=== PATIENT | male | born 1985 | race Caucasian/White ===

== ENCOUNTER 2024-04-07 16:52 | Emergency (ER) | payer MEDICAID, SELFPAY ==
[2024-04-07 16:53] VITALS: BP 108/62; PULSE 68; RESP 18; TEMP 36.6; O2SAT 96
--- NOTE | 2024-04-07 17:00 | DI.RAD_ITS ---
Exam(s) XR THUMB LT EXAM: XR THUMB LT CLINICAL HISTORY: thumb. TECHNIQUE: 2D digital imaging was performed. COMPARISON: No exams were available for comparison FINDINGS: 3 views No evidence of acute fracture or dislocation. No radiopaque foreign body. Bone density normal. No osseous lesions nor erosions. IMPRESSION: No acute osseous findings in the left thumb. DATA REPOSITORY: RADIATION DOSE DELIVERED:
--- NOTE | 2024-04-07 17:10 | ED.GENADUL_ITS ---
Discharge Plan Disposition Patient Disposition: Home Condition: Stable Discharge Details Clinical Impression: Contusion of left thumb Primary Care Provider: Unknown,Unknown ED Provider: Pepper Nesbitt Home Meds and New Rx's Prescriptions: No Action No Known Home Meds Discharge Instructions Instructions: Minor Contusion ED Additional Instructions: * No sign of fracture on your x-ray * You will likely continue to have some throbbing and pain. He can take Motrin, Tylenol and continue ice pack for the next 24 hours * The Steri-Strips may fall off, you can reapply a new one, this is just to help with the small wound * Wash hand with soap and water, do not use any alcohol or peroxide * wear the provided splint for comfort Discharge Data Discharge Date/Time-TO BE ENTERED AT DEPARTURE: 04/07/24 18:18 HPI General Date/Time Provider Initiated Documentation: 04/07/24 17:09 . Limitations to Documentation: no limitations . Information obtained by: patient . HPI Narrative: 38-year-old gentleman without significant past medical history presents for evaluation of acute onset left thumb pain. Earlier today he smashed his left thumb in the car door. Reports immediate onset of pain. Pain is progressively worsened throughout the day. He has not tried anything for relief. He reports that he has a small amount of bleeding that is still ongoing. He is left-hand dominant. Related Data Home Medications ?Medication ?Instructions ?Recorded ?Confirmed Unknown [No Known Home Meds] 04/07/24 04/07/24 Allergies Allergy/AdvReac Type Severity Reaction Status Date / Time No Known Allergies Allergy Verified 04/07/24 16:57 General Stated Complaint: Orthopedic TOVA: 4 Exam Narrative Exam Narrative: Review of Systems: All systems reviewed & are unremarkable except as noted in HPI and below Well-developed, no acute distress NCAT Unlabored respiratory effort Left thumb with bleeding at the cuticle from 3mm laceration , no subungual hematoma, nail is fully intact, normal sensation, full range of motion in all areas no focal neurologic deficits Appropriate mood and affect Course Vital Signs Vital signs: Vital Signs Temperature 36.6 C 04/07/24 16:53 Pulse 68 04/07/24 16:53 Respiratory Rate 18 04/07/24 16:53 Blood Pressure 108/62 04/07/24 16:53 Pulse Oximetry 96 04/07/24 16:53 Temperature 36.6 C 04/07/24 16:53 Temperature Source Oral 04/07/24 16:53 Pulse 68 04/07/24 16:53 Respiratory Rate 18 04/07/24 16:53 Blood Pressure 108/62 04/07/24 16:53 Blood Pressure Position Sitting 04/07/24 16:53 Pulse Oximetry 96 04/07/24 16:53 Oxygen Delivery Method Room Air 04/07/24 16:53 Oxygen Flow Rate 0 04/07/24 16:53 Pain Level 6 04/07/24 16:53 Procedures Laceration Laceration 1: Site: hand Side (If applicable): left Skin layer closed with: other (steri strip) Medical Decision Making Emergent evaluation of acute onset left traumatic thumb injury. The patient is left-hand dominant. Initial differential includes fracture, contusion, nailbed injury. Plan for pain control, wound care and x-ray imaging of the area. The nail is fully intact on removal would not be indicated given its appearance at this time. Wound was cleaned. The small open area was repaired with a Steri-Strip, nonstick dressing and a comfort splint were applied to the thumb as well. X-ray imaging of the thumb was obtained, reviewed and independently interpreted by me.: There is no evidence of traumatic injury of the thumb. Wound care instructions provided to the patient. Recommend follow-up with PCP as needed. Return precautions advised. Advised that the nail would likely fall off and will likely regrow Quality:SDOH Health Related Social Needs: No Data to Display PFSH All Active Problems (Updated 04/07/24 @ 18:06 by Pepper Nesbitt MD) Contusion of left thumb (Acute) Family History Father Alcohol use disorder Hypertension Mother , from Stage 4 Colon Cancer in 2012 Alcohol use disorder Anxiety Depression Colon cancer Social History Smoking/Tobacco Use Status: Current every day Tobacco Type: cigarettes Quit status: considering quitting Second Hand Exposure: Yes Smoking risk assessment performed?: Yes Alcohol Intake: former Year quit: 2023 Counseling given: Yes Drug use: Daily Substance use type: marijuana Adopted: No Caregiver/Support person: No Foster care: No Household members: none Housing: house Number of Children: 0 number of grandchildren: 0 Communication Needs: None Education Level: high school current occupation: [employer] Pets and animals: Yes ([employer]) Pets and animals: dog(s) Sexually active: No Do you think of yourself as: straight/heterosexual What is your relationship status?: never Do you belong to any clubs or organized social groups?: no Panel score (0-1 are the most socially isolated patients): 0 What type of physical activity do you participate in: walking and bicycling
[2024-04-07] MEDS: Ibuprofen 600 MG TAB PO (17:15)
--- NOTE | 2024-04-07 18:11 | DI.VRAD_ITS ---
PROCEDURE INFORMATION: Exam: XR Left Finger(s) Exam date and time: 04/07/2024 5:40 PM Age: 38 years old Clinical indication: Injury or trauma; Other: Crushed in truck door; Blunt trauma (contusions or hematomas); Finger; Left; Thumb TECHNIQUE: Imaging protocol: Radiologic exam of the left fingers. Views: Minimum 2 views. COMPARISON: No relevant prior studies available. FINDINGS: Bones/joints: There is some mild deformity of the 1st metacarpal, presumed prior trauma. No acute fracture. Joint spaces appear intact. Soft tissues: Normal. IMPRESSION: No evidence for acute posttraumatic abnormality. Dictated and Authenticated by: Zina Cobb MD. Ordering:[facility] Delicia Slater MD
== END 2024-04-07 18:18 | disposition home or self-care (01) ==
LOC: ER 18:27
PROVIDERS: Emergency Provider Emergency Medicine
DX: S60.012A Contusion of left thumb without damage to nail, initial encounter (principal); W23.0XXA Caught, crushed, jammed, or pinched between moving objects, initial encounter
CPT/HCPCS: 99283; 73140

== ENCOUNTER 2024-09-20 09:11 | Emergency (ER) | payer BC, SELFPAY ==
[2024-09-20 09:32] VITALS: BP 120/71; PULSE 81; RESP 18; TEMP 37.1; O2SAT 98
--- NOTE | 2024-09-20 10:00 | DI.RAD_ITS ---
Exam(s) XR CHEST 2V PA LATERAL EXAM: XR CHEST 2V PA LATERAL CLINICAL HISTORY: cough. TECHNIQUE: 2D digital imaging was performed. COMPARISON: No exams were available for comparison FINDINGS: 2 views: Heart size is normal. The mediastinum is not widened. Lungs are clear. No infiltrates nor pleural effusions. IMPRESSION: No acute pulmonary findings. DATA REPOSITORY: RADIATION DOSE DELIVERED:
--- NOTE | 2024-09-20 10:12 | W.ED.GENAD ---
Discharge Plan Disposition Patient Disposition: Home Condition: Stable Discharge Details Clinical Impression: URI (upper respiratory infection) Primary Care Provider: Krishna Knox ED Provider: Baron Meyer Home Meds and New Rx's Prescriptions: New prednisone 20 mg tablet 60 mg PO DAILY 5 Days Qty: 15 0RF albuterol sulfate 90 mcg/actuation HFA aerosol inhaler 2 puff inhalation Q6H PRNQty: 8.5 0RF Discharge Instructions Additional Instructions: Your x-ray and viral swab are negative. You can take 600 mg of ibuprofen and 1000 mg of acetaminophen every 6 hours as needed. If you are not improving within a week follow-up with your primary care provider. If you feel more ill or have new symptoms such as severe worsening difficulty breathing or persistent vomiting return to the emergency department for reevaluation. Stand Alone Forms: Work Release HPI General Mode of arrival: ambulatory. Date/Time Provider Initiated Documentation: 09/20/24 09:41. Limitations to Documentation: no limitations. Information obtained by: patient. History of Present Illness 39 year old M presents to the emergency department with the chief complaint of body aches, chills, cough, described as moderate, Patient started experiencing this day(s) (3) and it has been constant. No relieving factors improve symptom(s), No exacerbating factors reported . Patient notes cough and fever/chills; denies shortness of breath. Patient did receive the following treatments prior to arrival, none Related Data Home Medications ?Medication ?Instructions ?Recorded ?Confirmed albuterol sulfate 90 mcg/actuation 2 puff inhalation Q6H PRN #8.5 09/20/24 aerosol inhaler grams prednisone 20 mg tablet 60 mg (3 x 20 mg) PO DAILY 5 days 09/20/24 #15 tabs Previous Rx's ?Medication ?Instructions ?Recorded albuterol sulfate 90 mcg/actuation 2 puff inhalation Q6H PRN #8.5 09/20/24 aerosol inhaler grams prednisone 20 mg tablet 60 mg (3 x 20 mg) PO DAILY 5 days 09/20/24 #15 tabs Allergies Allergy/AdvReac Type Severity Reaction Status Date / Time No Known Allergies Allergy Verified 09/20/24 09:32 General Stated Complaint: RespSymp TOVA: 4 Review of Systems All systems reviewed & are unremarkable except as noted in HPI and below Constitutional Constitutional: Reports chills, Reports fever(s) and Denies weakness ENT Ears, Nose, Mouth, and Throat: Denies change in voice Cardiovascular Cardiovascular: Denies chest pain and Denies dyspnea Respiratory Respiratory: Reports cough and Denies dyspnea Gastrointestinal Gastrointestinal: Denies abdominal pain, Denies nausea and Denies vomiting Neurologic Neurologic: Denies weakness Psychiatric Psychiatric: Denies depression Exam Const General: no acute distress Orientation: alert HENMT Head: normal to inspection Ears: external ears normal General nose exam: external nose normal Mouth: moist mucous membranes Eyes General: appearance normal, both eyes and all related structures Neck Neck: normal visual inspection Resp Effort & Inspection: normal respiratory effort and able to speak in complete sentences Auscultation: clear to auscultation bilaterally Cardio Jugular venous pressure: no JVD Rate: regular rate Skin General skin exam: no rashes or lesions noted Neuro General: patient alert and patient oriented x3 Extrem General: normal to inspection Psych Mental Status: mental status grossly normal Course Vital Signs Vital signs: Vital Signs Temperature 37.1 C 09/20/24 09:32 Pulse 81 09/20/24 09:32 Respiratory Rate 18 09/20/24 09:32 Blood Pressure 120/71 09/20/24 09:32 Pulse Oximetry 98 09/20/24 09:32 Temperature 37.1 C 09/20/24 09:32 Temperature Source Oral 09/20/24 09:32 Pulse 81 09/20/24 09:32 Respiratory Rate 18 09/20/24 09:32 Respiratory Effort Normal, Non-Labored 09/20/24 09:35 Blood Pressure 120/71 09/20/24 09:32 Pulse Oximetry 98 09/20/24 09:32 Pain Level 8 09/20/24 09:32 Medical Decision Making 39-year-old male comes in with 3 days of bodyaches, subjective fevers and chills and productive cough. Denies any recent travel or IV drug use. He says he was positive for COVID September 05 and felt better but then this past Thursday started having recurrent body aches and cough. He is stable on arrival. He is speaking full sentences with no distress. He has a normal posterior pharynx, clear lung sounds, no JVD, no murmurs, no leg swelling. I suspect viral illness, will check a [id number] flu and COVID and also obtain chest x-ray. Chest x-ray and [id number] COVID and flu negative. I suspect an upper respiratory infection. Do not feel antibiotics are indicated. I will provide albuterol inhaler and prednisone given he has a smoking history and continues to smoke marijuana. He will follow-up with his PCP if not improving and return precautions given Differential Diagnosis Differential Diagnosis: Flu, COVID, pneumonia Quality:SDOH Health Related Social Needs: Health related social needs details States housing is no longer an issue. Using [employer] for transportation. Information given on local food resources. [facility] All Active Problems (Updated 09/20/24 @ 11:22 by Baron Meyer MD) URI (upper respiratory infection) (Acute) Smoker (Acute) Family history of colon cancer in mother (Chronic) Mother diagnosed at age 52 Bipolar disorder (Acute) Family History Father Alcohol use disorder Hypertension Mother , from Stage 4 Colon Cancer in 2012 Alcohol use disorder Anxiety Depression Colon cancer Social History Smoking/Tobacco Use Status: Former Tobacco Use Quit Date: 08/22/24 Tobacco: How many years used: 10 Quit status: considering quitting ([facility]. Advised to address with pcp if not successful with this program.) Second Hand Exposure: Yes Smoking risk assessment performed?: Yes Alcohol Intake: former Year quit: 2023 Counseling given: Yes Drug use: Daily Substance use type: marijuana Adopted: No Caregiver/Support person: No Foster care: No Household members: none Housing: house Number of Children: 0 number of grandchildren: 0 Communication Needs: None Education Level: high school current occupation: [employer] Pets and animals: Yes ([employer]) Pets and animals: dog(s) Sexually active: No Do you think of yourself as: straight/heterosexual What is your relationship status?: never Do you belong to any clubs or organized social groups?: no Panel score (0-1 are the most socially isolated patients): 0 What type of physical activity do you participate in: walking and bicycling Do you feel safe in your relationship?: Yes
[2024-09-20] MEDS: Ibuprofen 600 MG TAB PO (10:26)
[2024-09-20 12:14] VITALS: BP 120/71; PULSE 81; RESP 18; TEMP 37.1; O2SAT 98
== END 2024-09-20 12:14 | disposition home or self-care (01) ==
PROVIDERS: Emergency Provider Emergency Medicine; PCP Family Medicine
DX: J06.9 Acute upper respiratory infection, unspecified (principal)
CPT/HCPCS: 99283; 71046

== ENCOUNTER 2024-12-19 23:56 | Emergency (ER) | payer BC, SELFPAY ==
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
[2024-12-20 00:05] VITALS: PULSE 90; RESP 18; TEMP 36.8; O2SAT 99
[2024-12-20] MEDS: QUEtiapine 50 MG TAB PO (00:21)
[2024-12-20 01:11] LABS: *AMPHETAMINES SCREEN URINE Negative (Negative); *BARBITURATES SCREEN URINE Negative (Negative); *BENZODIAZEPINES SCREEN URINE Negative (Negative); Cannabinoids THC Positive (Negative); Cocaine Screen,Urine Negative (Negative); METHADONE URINE SCREEN Negative (Negative); OPIATES URINE SCREEN Negative (Negative)
[2024-12-20 01:15] LABS: Tricyclic Antidepressants Negative (Negative)
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
--- NOTE | 2024-12-20 07:42 | W.EDPROG ---
Date of service: 12/20/24 Time of Service: 07:43 Medical Decision Making I received signout on this 39-year-old male with history of bipolar disorder, likely manic at this point. Has agreed to voluntary inpatient admission for medication adjustment. No SI or HI and not needing involuntary criteria if he decides he wishes to leave. Home medications ordered. Will update documentation as clinically warranted and sign patient out to the oncoming evening provider. 8:12 AM Patient became agitated and was reportedly pacing. I ordered 5 mg as needed droperidol intramuscularly. 11 AM I spoke to Sandra Edouard from the [facility] who accepted the patient. 12 PM I signed transfer paperwork to have the patient transferred to the [facility] via [facility]. Quality:SDOH Health Related Social Needs: Health related social needs details States housing is no longer an issue. Using [facility] for transportation. Information given on local food resources. Discharge Plan Disposition Patient Disposition: Psychiatric Hospital/Unit Specific Psychiatric Facility: [facility] Discharge Details Chief Complaint: PsychEval Clinical Impression: Bipolar 1 disorder with moderate roland Primary Care Provider: Krishna Knox ED Provider: Gabriele Jefferson Home Meds and New Rx's Prescriptions: No Action propranolol 10 mg tablet 10 mg PO BID PRN (Reason: anxiety) quetiapine 50 mg tablet 50 mg PO QHS Qty: 60 0RF
[2024-12-20] MEDS: Droperidol 5 MG/2 ML VIAL IM (08:20)
[2024-12-20 08:46] VITALS: BP 122/64; PULSE 85; RESP 17; O2SAT 99
--- NOTE | 2024-12-20 13:16 | CMPROGNOTE_ITS ---
Date of service: 12/20/24 Time of Service: 13:16 Care Management Progress Note Progress Note Text Progress Note Text: Per report, Marvin presented to the ED by police (not in custody), and was reportedly in a manic state. [facility] screened him and sent referrals to facilities. He was [facility] by [facility], and was transported there this afternoon via [facility], where he will receive inpatient psychiatric treatment. Social Determinants of Health Screening Will the Patient Participate in the Screening?: Declined to provide
== END 2024-12-20 12:42 ==
PROVIDERS: Emergency Medicine; Emergency Provider Emergency Medicine; PCP Family Medicine
DX: F31.12 Bipolar disorder, current episode manic without psychotic features, moderate (principal)
CPT/HCPCS: 99285 ×2; 96372; 00123; 80307; J1790